=== PATIENT | female | born 1995 | race Caucasian/White ===

== ENCOUNTER 2020-03-25 21:46 | Emergency (ER) | payer OTHER, SELFPAY ==
[2020-03-25 21:49] VITALS: BP 139/93; PULSE 100; RESP 20; TEMP 36.7; O2SAT 100; BMI 34.7
[2020-03-25 23:08] LABS: Appearance Urine CLEAR; Color Urine YELLOW; Glucose Urine UA NEG (NEG); Leukocyte Esterase Urine NEG (NEG); Nitrite Urine NEG (NEG); Specific Gravity - Urine 1.015 (1.005-1.025); Urine Blood NEG (NEG); Urine Ketones NEG (NEG); Urine Protein NEG (NEG-TRACE)
[2020-03-25 23:09] LABS: UPreg QC Valid YES; Urine Pregnancy NEGATIVE (NEGATIVE)
[2020-03-26 00:23] VITALS: BP 114/75; PULSE 98; RESP 18; TEMP 36.6; O2SAT 99
--- NOTE | 2020-03-26 01:02 | ED.ABDPAIN ---
HPI - Abdominal Pain General Chief Complaint: Abdominal Pain Stated Complaint: Back and abdominal pain Time Seen by Provider: 03/25/20 22:42 Source: patient Mode of arrival: ambulatory History of Present Illness HPI narrative: This is a 24-year-old female who presents with 1 day acute worsening right lower quadrant pain that is sharp in nature, no radiation into the groin or upper thigh but associated with chills, nausea but no vomiting, and a few episodes of nonbloody diarrhea that started later in the day. She does have a positive prior history of a small kidney stone but denies any surgical history. Related Data Allergies Allergy/AdvReac Type Severity Reaction Status Date / Time amoxicillin [AMOXICILLIN] Allergy Unknown HIVES/TIGHT Verified 03/25/20 21:52 THROAT latex [LATEX] Allergy Unknown RASH Verified 03/25/20 21:52 Review of Systems Review of Systems Pertinent positives and negatives as stated in HPI 10 point review of systems is otherwise negative. Physical Exam Vital Signs: Vital Signs: Last Vital Signs Temp 97.9 F 03/26/20 00:23 Pulse 98 03/26/20 00:23 Resp 18 03/26/20 00:23 BP 114/75 03/26/20 00:23 Pulse Ox 99 03/26/20 00:23 Body Mass Index 34.7 VITAL SIGNS: Reviewed. GENERAL: Well developed, well nourished, mild distress. NOSE: Nares patent bilateral OROPHARYNX: no oral lesions noted, posterior pharynx clear and non-erythematous without noted tonsillar enlargement/erythema/exudates NECK: Supple, no adenopathy LUNGS: Normal breath sounds. No adventitious sounds or accessory muscle use. SpO2<99> CARDIOVASCULAR: Regular rate and rhythm without noted murmurs ABDOMEN: Soft, tenderness right lower quadrant without rebound but also noted to have CVA tenderness, non-distended with bowel sounds. SKIN: Inspection of the skin reveals no rashes NEUROLOGIC: Alert and oriented x 4. Course Course Course Narrative: This is a 24-year-old female with history and clinical presentation suggestive of possible appendicitis, renal colic, but less likely UTI or ovarian torsion. Will evaluate for possible ectopic as well. All investigations were reviewed and there were no acute findings to suggest appendicitis, renal colic, ruptured ovarian cyst, pyelonephritis, UTI. On re-evaluation patient's pain has improved and she was informed of all results and findings at the bedside and instructed to follow-up with her tank hoop bender for further evaluation right lower pelvic discomfort. MDM - Abdominal Pain Lab Data Result diagrams: 03/26/20 01:48 03/26/20 01:48 Labs: Lab Results 03/25/20 03/26/20 03/26/20 Range/Units 22:52 01:48 01:48 WBC 9.8 (4.8-10.8) X10*3/uL RBC 4.20 (4.20-5.50) X10*6/uL Hgb 13.6 (12.0-16.0) g/dl Hct 39.4 (37-47) % MCV 93.8 (80-98) fL MCH 32.4 (27.0-33.0) pg MCHC 34.5 (31.0-35.0) g/dl RDW 11.5 (11.0-16.0) % Plt Count 255 (160-400) X10*3/uL MPV 10.9 (9.4-12.3) fL Immature Gran % (Auto) 0.2 (0.0-0.4) % Neut % (Auto) 57.6 (45-73) % Lymph % (Auto) 34.7 (20-40) % [place] % (Auto) 6.3 (2-11) % Eos % (Auto) 0.8 (0-4) % Baso % (Auto) 0.4 (0-2) % Lymph # (Auto) 3.4 (1.2-4.9) X10*3/uL [place] # (Auto) 0.6 (0.1-1.2) X10*3/uL Eos # (Auto) 0.1 (0.0-0.4) X10*3/uL Baso # (Auto) 0.0 (0.0-0.2) X10*3/uL Abs Immat Gran (auto) 0.02 (0.00-0.03) X10*3/uL Absolute Neuts (auto) 5.6 (2.0-8.3) X10*3/uL Absolute Nucleated RBC 0.000 (0.0-0.012) X10*3/uL Nucleated RBC % (auto) 0.0 (0.0-0.2) /100WBC Sodium 139 (135-145) mmol/L Potassium 4.0 (3.3-5.1) mmol/l Chloride 106 (96-108) mmol/L Carbon Dioxide 22 (22-29) mmol/L Anion Gap 15 (12-20) BUN 9 (9-16) mg/dL Creatinine 0.64 (0.5-1.4) mg/dL Estim Creat Clear Calc 120.1 Estimated GFR > 60 Random Glucose 82 (60-115) mg/dL Calcium 9.0 (8.4-10.2) mg/dL Total Bilirubin 0.5 (0.0-1.0) mg/dL AST 29 (5-31) U/L ALT 34 H (0-31) U/L Alkaline Phosphatase 67 (39-117) U/L Total Protein 7.2 (6.5-8.0) g/dL Albumin 4.3 (3.5-5.0) g/dL Lipase 39 (8-78) U/L Urine Color YELLOW Urine Appearance CLEAR Urine pH 7.0 (5.0-8.0) Ur Specific [place] 1.015 (1.005-1.025) Urine Protein NEG (NEG-TRACE) MG/DL Urine Glucose (UA) NEG (NEG) MG/DL Urine Ketones NEG (NEG) MG/DL Urine Blood NEG (NEG) Urine Nitrite NEG (NEG) Ur Leukocyte Esterase NEG (NEG) Urine Test NEGATIVE (NEGATIVE) Discharge Plan Discharge Clinical Impression: Pelvic pain Patient Disposition: Home, Self-Care Instructions: Pelvic Pain in Women (ED) Additional Instructions: There is a possibility that you have a muscle strain, or possibly mittelschmerz versus endometriosis. With 2 latter possibilities should be further worked up and evaluated by your tank hoop bender. Recommend using [id number] Tylenol/ibuprofen for additional symptom relief. Please do not hesitate to return to the emergency department should you experience any worsening or new symptoms. Referrals: Tor Dowling, [employer] [Primary Care Provider] - 2 days (Re-evaluation of right pelvic pain, possibilities include muscle strain/endometriosis/mittelschmerz) [facility] Past Medical History Source: nursing notes reviewed Medical History PCOS (polycystic ovarian syndrome) Social History Social History Alcohol intake: former Smoking Status: Light tobacco smoker Use of substances other than those prescribed or required for medical reasons: No Advance Directives: No
--- NOTE | 2020-03-26 01:05 | CT_ITS ---
EXAMINATION: CT ABDOMEN AND PELVIS WITH CONTRAST CLINICAL INFORMATION: Right lower quadrant pain COMPARISON: None TECHNIQUE: Multidetector volumetric images were obtained from the superior aspect of the liver through the pubic symphysis following administration 85 mL of Omnipaque 350 intravenous contrast. Sagittal and coronal reformatted images were obtained on the technologist's workstation. Oral contrast: No This CT examination was performed using dose optimization techniques as appropriate, variously including the following: *Automated exposure control *Adjustment of mA and/or kV according to patient size (this includes techniques or standardized protocols for targeted exams where dose is matched to indication/reason for exam; i.e. extremities or head) *Use of iterative reconstruction technique DLP: 607 mGy-cm FINDINGS: LUNG BASES: The visualized lung bases are unremarkable. LIVER, GALLBLADDER, AND BILIARY TREE: The liver is normal in size, shape, and attenuation. No focal hepatic lesion or biliary ductal dilatation is present. The gallbladder is unremarkable with no evidence of radiopaque gallstones, gallbladder wall thickening, or obvious pericholecystic inflammatory changes. PANCREAS: Unremarkable. SPLEEN: Unremarkable. ADRENAL GLANDS: Unremarkable. KIDNEYS AND URETERS: The kidneys are normal in size, shape, and attenuation. There is mild fullness of the renal collecting systems, right greater than left, without naz hydronephrosis or hydroureter. This is favored to be physiologic. No nephrolithiasis or ureterolithiasis. BLADDER: Partially filled and otherwise unremarkable. GASTROINTESTINAL TRACT: Stomach, small bowel, and colon are normal in caliber. No bowel wall thickening or surrounding inflammatory changes. Appendix is normal. No intraperitoneal free fluid or free air. ABDOMINAL WALL: No significant hernia is appreciated. LYMPH NODES: Normal. VASCULAR: Unremarkable. PELVIC VISCERA: Uterus is retroverted. IUD is appropriately situated. There is a 2.5 cm cystic structure in the right ovary, most likely a follicular cyst. Left ovary is unremarkable. OSSEOUS STRUCTURES: No acute osseous findings. Lumbar spine appears relatively well-preserved. CT/CT abdomen pelvis w con IMPRESSION: No acute intra-abdominal or intrapelvic abnormalities. A 2.5 cm cystic structure in the right ovary likely corresponds to a follicular/corpus luteum cyst. No suspicious abnormalities.
[2020-03-26 01:54] LABS: MANUAL DIFF FLAG NO
[2020-03-26 02:08] LABS: Basophils Percent Auto 0.4 % (0-2); Eosinophils Absolute Auto 0.1 X10*3/uL (0.0-0.4); Eosinophils Percent Auto 0.8 % (0-4); Hematocrit 39.4 % (37-47); Hemoglobin 13.6 g/dl (12.0-16.0); Imm Gran Abs Auto 0.02 X10*3/uL (0.00-0.03); Imm Gran Pct Auto 0.2 % (0.0-0.4); Lymphocytes Absolute Auto 3.4 X10*3/uL (1.2-4.9); Lymphocytes Percent Auto 34.7 % (20-40); Mean Corpuscular HGB Conc 34.5 g/dl (31.0-35.0); Mean Corpuscular Hemoglobin 32.4 pg (27.0-33.0); Mean Corpuscular Volume 93.8 fL (80-98); Mean Platelet Volume 10.9 fL (9.4-12.3); Monocytes Absolute Auto 0.6 X10*3/uL (0.1-1.2); Monocytes Percent Auto 6.3 % (2-11); Neutrophils Absolute Auto 5.6 X10*3/uL (2.0-8.3); Neutrophils Percent Auto 57.6 % (45-73); Platelet Count 255 X10*3/uL (160-400); Red Cell Distribution Width 11.5 % (11.0-16.0); White Blood Count 9.8 X10*3/uL (4.8-10.8)
[2020-03-26 02:30] LABS: Alanine Aminotransferase 34 U/L (0-31); Albumin Level 4.3 g/dL (3.5-5.0); Alkaline Phosphatase 67 U/L (39-117); Anion Gap 15 (12-20); Aspartate Amino Transferase 29 U/L (5-31); Bilirubin Total 0.5 mg/dL (0.0-1.0); Blood Urea Nitrogen 9 mg/dL (9-16); Carbon Dioxide 22 mmol/L (22-29); Chloride 106 mmol/L (96-108); Creatinine Clr Calc Pharmacy 120.1; Estimated Glomerular Filt Rate > 60; Glucose Random 82 mg/dL (60-115); Lipase 39 U/L (8-78); Sodium 139 mmol/L (135-145); Total Protein 7.2 g/dL (6.5-8.0)
[2020-03-26] MEDS: 0.9 % Sodium Chloride 1,000 ML 999 ML IV (02:31)
[2020-03-26] MEDS: Acetaminophen 325 MG TABLET 975 MG PO (02:32)
[2020-03-26] MEDS: Ketorolac Tromethamine 15 MG/ML VIAL IVPUSH (02:33)
[2020-03-26] MEDS: iohexoL 350 MG/ML 100 ML INFUS..BTL 85 ML IV (03:18)
[2020-03-26 04:00] VITALS: BP 120/66; PULSE 88; RESP 18; TEMP 36.9; O2SAT 99
== END 2020-03-26 04:00 | disposition home or self-care (01) ==
PROVIDERS: Emergency Provider Student in an Organized Health Care Education/Training Program; PCP Nurse Practitioner Family
DX: R10.2 Pelvic and perineal pain (principal); R10.31 Right lower quadrant pain; M54.5 Low back pain; Z87.891 Personal history of nicotine dependence
CPT/HCPCS: 36415; 74177; 80053; 81003; 81025; 83690; 85025; 96361; 96374; 99284; J1885; Q9967

== ENCOUNTER 2022-02-21 20:49 | Emergency (ER) | payer OTHER, SELFPAY ==
[2022-02-21 21:15] VITALS: BP 113/87; PULSE 114; RESP 18; TEMP 36.7; O2SAT 96; BMI 34.3
--- NOTE | 2022-02-21 21:24 | ED.WOUNDLAC ---
HPI - Wound/Laceration General Chief Complaint: Wound/Laceration Stated Complaint: Lac to Head Time Seen by Provider: 02/21/22 21:21 Source: patient Mode of arrival: ambulatory Limitations: no limitations History of Present Illness HPI narrative: Patient comes to the emergency room complaining of a laceration to the forehead. Patient states that she dropped something on the floor, bent down to grab it and while she was doing so, she hit her forehead with the sharp edge of a counter top. Patient did not lose consciousness. Patient states that she has a headache and felt dizzy, patient denies loss of balance. Patient is not on blood thinners. Related Data Allergies Allergy/AdvReac Type Severity Reaction Status Date / Time amoxicillin [AMOXICILLIN] Allergy Unknown HIVES/TIGHT Verified 03/25/20 21:52 THROAT latex [LATEX] Allergy Unknown RASH Verified 03/25/20 21:52 Review of Systems Review of Systems: Constitutional : No Weight loss, No Fever, No Chills, No Night Sweats, No Fatigue, No Malaise ENT/Mouth : No Hearing loss, No Ear Pain, No Nasal Congestion, No Sinus Pain, No Hoarseness, No sore throat, No Rhinorrhea, No Swallowing Difficulty Eyes: No Eye Pain, No Swelling, No Redness, No Foreign Body, No Discharge, No Vision Changes Cardiovascular : No Chest Pain, No SOB, No Dyspnea on Exertion, No Orthopnea, No Edema, No Palpitations Respiratory : No Cough, No Sputum, No Wheezing, No Smoke Exposure, No Dyspnea Gastrointestinal : No Nausea, No Vomiting, No Diarrhea, No Constipation, No abdominal Pain, No Hematochezia, No Melena Genitourinary : no irregular bleeding, No Dysuria, No Urinary Frequency, No Hematuria, No Urinary Incontinence, No Urgency, No Flank Pain, No Urinary Flow Changes, No Hesitancy Musculoskeletal : No joint pain, No Myalgias, No Joint Swelling Skin : Complaining of a laceration to the forehead Neuro : No Weakness, No Numbness, No Paresthesias, No Loss of Consciousness, earlier today had dizziness, now has headache Psych : No Anxiety/Panic, No Depression, No SI/HI/AH/VH, No Social Issues, Heme/Lymph: No Bruising, No Bleeding,No Lymphadenopathy Endocrine : No Polyuria, No Polydipsia, No Temperature Intolerance [facility] Past Medical History Medical History PCOS (polycystic ovarian syndrome) Social History Social History Alcohol intake: former Advance Directives: No Advance Directives Information Provided: No Physical Exam Vital Signs: Vital Signs: Last Vital Signs Temp 98.1 F 02/21/22 21:15 Pulse 114 H 02/21/22 21:15 Resp 18 02/21/22 21:15 BP 113/87 02/21/22 21:15 Pulse Ox 96 02/21/22 21:15 O2 Del Method 02/21/22 21:15 BMI result Body Mass Index 34.3 Const: Other: Appearance: Alert. Oriented X3. No acute distress. Well-appearing Eyes: Pupils equal, round and reactive to light. ENT: Pharynx normal. Neck: Normal inspection. Neck supple. No lymph nodes noted. No crepitus CVS: Normal heart rate and rhythm. Pulses normal. Normal S1 and S2 Respiratory: No respiratory distress. Breath sounds normal. No Wheezing. No rales Abdomen: Soft and nontender. No rigidity. No distention. Skin: Skin warm and dry. 2 cm laceration, approximately 5 mm deep on the left side of the forehead Extremities: No lower extremity edema. No Lacerations. No Rash Neuro: Oriented X 3. No motor deficit. No sensory deficit. Moving all extremities. No slurred speech. CN 2 through 12 grossly intact, GCS of 15 Psych: calm, cooperative, normal affect Course Course Course Narrative: I discussed with the patient that she will need stitches, patient agrees with plan. [place] head CT head rule score of 0, no CT needed Medications Administered Discontinued Medications Generic Name Dose Route Start Last Admin Trade Name Freq PRN Reason Stop Dose Admin Acetaminophen 975 mg 02/21/22 21:24 02/21/22 21:42 Acetaminophen 325 Mg Tablet PO 02/21/22 21:25 975 mg ONCE ONE Administration Lidocaine HCl 6 ml 02/21/22 21:24 02/21/22 21:43 Lidocaine Hcl 2% 2 Ml Vial INFILTRATI 02/21/22 21:25 6 ml ONCE ONE Administration Medical Decision Making Medical Decision Making MDM Narrative: Patient id 5 sutures, tolerated well the procedure. Otherwise patient feeling well, well-appearing, no neurological deficits at this time. Differential Diagnosis Laceration, concussion, contusion Tests considered The following testing was considered but not selected: A CT scan of the head was considered. However, patient has localized pain, no longer dizzy, has no neurological deficits. There are no indications that patient may have a brain bleed. Patient is not on blood thinners. Prescription Management I considered prescription management with: Pain Medication Patient will be given Tylenol, patient has history of gastritis, ibuprofen will not be given. Procedures Laceration Laceration 1: Site: face Size (cm): 2 Description: linear Depth: simple, single layer Local Anesthetic: lidocaine 1% Amount of anesthesia used (mL): 2 Skin layer closed with: nylon Size (cm): 6-0 Number of sutures: 5 Technique: simple, interrupted Discharge Plan Discharge Clinical Impression: Laceration Patient Disposition: Home, Self-Care Instructions: Facial Laceration (ED) Additional Instructions: If you see any signs of infection such as redness, pus drainage, fever chills, please return to the emergency room. Otherwise, your stitches need to be removed in 7-10 days. This may be done at your primary care physician's office, urgent care or return to the emergency room. Please follow-up with your primary care physician tomorrow. If you have any worsening or new symptoms, please return to the emergency room or call 911
[2022-02-21] MEDS: Acetaminophen 325 MG TABLET 975 MG PO (21:42)
== END 2022-02-21 22:30 | disposition home or self-care (01) ==
PROVIDERS: Emergency Provider Emergency Medicine; PCP Nurse Practitioner Family
DX: S01.01XA Laceration without foreign body of scalp, initial encounter (principal); Y29.XXXA Contact with blunt object, undetermined intent, initial encounter; Y93.9 Activity, unspecified; Y92.000 Kitchen of unspecified non-institutional (private) residence as the place of occurrence of the external cause; Y99.9 Unspecified external cause status; Z79.899 Other long term (current) drug therapy
CPT/HCPCS: 12011; 99283; 99284

== ENCOUNTER 2022-03-16 01:28 | Emergency (ER) | payer OTHER, SELFPAY ==
[2022-03-16 01:30] VITALS: BP 136/84; PULSE 95; RESP 16; TEMP 36.4; O2SAT 97; BMI 34.3
--- NOTE | 2022-03-16 02:03 | PC.NURSE ---
pt a&ox4; complains of abd pain and vomiting and gets this from time to time, pt states she has had upper endoscopies, numerous testing done due to 'gi issues'; no apparent distress
[2022-03-16 02:17] LABS: Basophils Percent Auto 0.4 % (0-2); Eosinophils Percent Auto 0.1 % (0-4); Hemoglobin 14.8 g/dl (12.0-16.0); Imm Gran Abs Auto 0.02 X10*3/uL (0.00-0.03); Imm Gran Pct Auto 0.3 % (0.0-0.4); Lymphocytes Percent Auto 42.7 % (20-40); MANUAL DIFF FLAG NO; Mean Corpuscular HGB Conc 35.2 g/dl (31.0-35.0); Mean Corpuscular Hemoglobin 33.5 pg (27.0-33.0); Mean Platelet Volume 9.8 fL (9.4-12.3); Monocytes Absolute Auto 0.4 X10*3/uL (0.1-1.2); Monocytes Percent Auto 6.1 % (2-11); Neutrophils Absolute Auto 3.6 x10*3/uL (2.0-8.3); Neutrophils Percent Auto 50.4 % (45-73); Platelet Count 224 X10*3/uL (160-400); Red Blood Count 4.42 X10*6/uL (4.20-5.50); Red Cell Distribution Width 11.3 % (11.0-16.0); White Blood Count 7.1 X10*3/uL (4.8-10.8)
--- NOTE | 2022-03-16 02:26 | ED_ITS ---
HPI - Nausea/Vomiting/Diarrhea General Chief complaint: Nausea/Vomiting/Diarrhea Stated complaint: Vomiting Time Seen by Provider: 03/16/22 01:52 Source: patient Mode of arrival: ambulatory History of Present Illness HPI Narrative: 26-year-old female presents with complaints of multiple episodes of nausea and vomiting without fever chills, diarrhea and she does not think that she is as she has an IUD. Patient is not have any abdominal pain prior to the onset of the nausea and vomiting but after onset of multiple episodes is complaining of significant epigastric discomfort and now is reporting blood flecked vomitus that she quantitate as approximately 5 times today. Patient states she has had an upper endoscopy previously that showed ?lesions? but denies that she was ever prescribed a medication and states that her last endoscopy was over 2 years ago. Related Data Previous Rx's Medication Instructions Recorded omeprazole 40 mg capsule,delayed 40 mg PO DAILY #30 caps 03/16/22 release Allergies Allergy/AdvReac Type Severity Reaction Status Date / Time amoxicillin [AMOXICILLIN] Allergy Unknown HIVES/TIGHT Verified 03/25/20 21:52 THROAT latex [LATEX] Allergy Unknown RASH Verified 03/25/20 21:52 Review of Systems Review of Systems: Pertinent positives and negatives as stated in HPI PMFSH Past Medical History Source: nursing notes reviewed Medical History PCOS (polycystic ovarian syndrome) Social History Social History Alcohol intake: current Alcohol intake frequency: a few times a week Alcohol type: beer Smoked in Last 30 Days: Yes Use of substances other than those prescribed or required for medical reasons: No Advance Directives: No Advance Directives Information Provided: No Patient : No Physical Exam Vital Signs: Vital Signs: Last Vital Signs Temp 98.5 F 03/16/22 05:15 Pulse 77 03/16/22 05:15 Resp 18 03/16/22 05:15 BP 111/75 03/16/22 05:15 Pulse Ox 98 03/16/22 05:15 O2 Del Method 03/16/22 05:15 BMI result Body Mass Index 34.3 VITAL SIGNS: Reviewed. GENERAL: Elevated BMI Well developed, well nourished, in no acute distress. HEAD: Normocephalic/atraumatic EYES: PERRLA, EOMI EARS: Ext canals without abnormality OROPHARYNX: no oral lesions noted, posterior pharynx clear LUNGS: Normal breath sounds. No adventitious sounds or accessory muscle use. SpO2<97> CARDIOVASCULAR: Regular rate and rhythm without noted murmurs ABDOMEN: Soft, non-tender, non-distended with bowel sounds. MUSCULOSKELETAL: No tenderness, deformities, or effusions noted on gross inspection. EXTREMITIES: No cyanosis, clubbing or edema. SKIN: Inspection of the skin reveals no rashes NEUROLOGIC: Alert and oriented x 4. Strength and sensation to light touch were grossly intact x 4. Medications Administered Discontinued Medications Generic Name Dose Route Start Last Admin Trade Name Freq PRN Reason Stop Dose Admin Al Hydroxide/Mg Hydroxide 30 ml 03/16/22 04:10 03/16/22 04:43 Magnesium Hydrox/Alum Hydrox 30 Ml Oral.Susp PO 03/16/22 04:11 30 ml ONCE ONE Administration Famotidine 20 mg 03/16/22 02:22 03/16/22 02:42 Famotidine/Pf 20 Mg/2 Ml Vial IVPUSH 03/16/22 02:23 20 mg ONCE ONE Administration Sodium Chloride 1,000 mls @ 999 mls/hr 03/16/22 02:30 03/16/22 03:54 Ns IV 03/16/22 03:30 Infused .Q1H1M MARYAN Infusion Sodium Chloride 1,000 mls @ 999 mls/hr 03/16/22 03:30 03/16/22 04:57 Ns IV 03/16/22 04:30 Infused .Q1H1M MARYAN Infusion Lidocaine HCl 10 ml 03/16/22 04:10 03/16/22 04:43 Lidocaine Hcl Viscous 2 % 15 Ml Solution MUCOUS MEM 03/16/22 04:11 10 ml ONCE ONE Administration Ondansetron HCl 4 mg 03/16/22 02:22 03/16/22 02:42 Ondansetron Hcl 4 Mg/2 Ml Vial IVPUSH 03/16/22 02:23 4 mg ONCE ONE Administration Sucralfate 1 gm 03/16/22 04:10 03/16/22 04:43 Sucralfate Oral Suspension 1 Gm/10 Ml Oral.Susp PO 03/16/22 04:11 1 gm ONCE ONE Administration Medical Decision Making Medical Decision Making MDM Narrative: 26-year-old female with suspected gastritis/GERD/gastric ulcer. Patient received 2 L of IV fluids, anti acid as well as a GI cocktail and Carafate and an antiemetic. When I reviewed and interpreted patient's workup it appears that she has had an episode of gastritis/GERD as there is no evidence to suggest a pancreatitis, UTI, cholecystitis, or pneumonia. Patient is otherwise discharged home in stab le condition with a prescription for as reflux and instructed follow-up with primary care provider. Differential Diagnosis Differential Diagnoses: The differential diagnosis associated with the presentation includes Please see above Lab Data MDM Lab Attestation statement: I reviewed the patient's lab results. Please see the discussion above 03/16/22 02:02 03/16/22 02:02 Labs: Lab Results 03/16/22 03/16/22 03/16/22 Range/Units 02:02 02:02 05:15 WBC 7.1 (4.8-10.8) X10*3/uL RBC 4.42 (4.20-5.50) X10*6/uL Hgb 14.8 (12.0-16.0) g/dl Hct 42.0 (37.0-47.0) % MCV 95.0 (80.0-98.0) fL MCH 33.5 H (27.0-33.0) pg MCHC 35.2 H (31.0-35.0) g/dl RDW 11.3 (11.0-16.0) % Plt Count 224 (160-400) X10*3/uL MPV 9.8 (9.4-12.3) fL Immature Gran % (Auto) 0.3 (0.0-0.4) % Neut % (Auto) 50.4 (45-73) % Lymph % (Auto) 42.7 H (20-40) % [place] % (Auto) 6.1 (2-11) % Eos % (Auto) 0.1 (0-4) % Baso % (Auto) 0.4 (0-2) % Lymph # (Auto) 3.0 (1.2-4.9) X10*3/uL [place] # (Auto) 0.4 (0.1-1.2) X10*3/uL Eos # (Auto) 0.0 (0.0-0.4) X10*3/uL Baso # (Auto) 0.0 (0.0-0.2) X10*3/uL Abs Immat Gran (auto) 0.02 (0.00-0.03) X10*3/uL Absolute Neuts (auto) 3.6 (2.0-8.3) x10*3/uL Absolute Nucleated RBC 0.000 (0.0-0.012) X10*3/uL Nucleated RBC % (auto) 0.0 (0.0-0.2) /100WBC Sodium 140 (135-145) mmol/L Potassium 4.4 (3.3-5.1) mmol/L Chloride 106 (96-108) mmol/L Carbon Dioxide 24 (22-29) mmol/L Anion Gap 14 (12-20) BUN 8 L (9-16) mg/dL Creatinine 0.67 (0.5-1.4) mg/dL Estim Creat Clear Calc 111.9 Estimated GFR > 60 Random Glucose 91 (60-115) mg/dL Calcium 9.0 (8.4-10.2) mg/dL Total Bilirubin 0.3 (0.0-1.0) mg/dL AST 31 (5-31) U/L ALT 20 (0-31) U/L Alkaline Phosphatase 82 (39-117) U/L Total Protein 7.7 (6.5-8.0) g/dL Albumin 4.4 (3.5-5.0) g/dL Lipase 40 (8-78) U/L Urine Color Yellow Urine Appearance Clear Urine pH 7.0 (5.0-9.0) Ur Specific [place] 1.010 (1.005-1.025) Urine Protein Negative (Neg-Trace) mg/dL Urine Glucose (UA) Negative (Negative) mg/dL Urine Ketones Negative (Negative) mg/dL Urine Blood Negative (Negative) Urine Nitrite Negative (Negative) Ur Leukocyte Esterase Negative (Negative) Discharge Plan Discharge Clinical Impression: Gastritis, Gastroesophageal reflux disease Patient Disposition: Home, Self-Care Instructions: Gastritis (ED), Diet for Stomach Ulcers and Gastritis (ED), Gastroesophageal Reflux Disease (ED) Additional Instructions: 1. You are being provided with a medication that should help control the acid production and thereby lower your feelings of nausea. 2. I recommend that you also use [id number] Mylanta prior to each meal for additional symptom relief. 3. Please follow-up with your primary care provider on Friday morning. Return to the ER for worsening symptoms Prescriptions: New omeprazole 40 mg capsule,delayed release(DR/EC) 40 mg PO DAILY Qty: 30 0RF Referrals: Pairsa Sinha CNP [Primary Care Provider] -
[2022-03-16 02:32] LABS: Alanine Aminotransferase 20 U/L (0-31); Albumin Level 4.4 g/dL (3.5-5.0); Alkaline Phosphatase 82 U/L (39-117); Anion Gap 14 (12-20); Aspartate Amino Transferase 31 U/L (5-31); Bilirubin Total 0.3 mg/dL (0.0-1.0); Blood Urea Nitrogen 8 mg/dL (9-16); Carbon Dioxide 24 mmol/L (22-29); Chloride 106 mmol/L (96-108); Creatinine Clr Calc Pharmacy 111.9; Estimated Glomerular Filt Rate > 60; Glucose Random 91 mg/dL (60-115); Potassium 4.4 mmol/L (3.3-5.1); Sodium 140 mmol/L (135-145); Total Protein 7.7 g/dL (6.5-8.0)
[2022-03-16] MEDS: 0.9 % Sodium Chloride 1,000 ML 999 ML IV ×2 (02:39→03:52)
[2022-03-16 02:40] LABS: Lipase 40 U/L (8-78)
[2022-03-16] MEDS: ondansetron HCL 4 MG/2 ML VIAL IVPUSH (02:42)
[2022-03-16] MEDS: Famotidine/PF 20 MG/2 ML VIAL IVPUSH (02:42)
--- NOTE | 2022-03-16 04:00 | PC.NURSE ---
Pt sleeping; no apparent distress.
[2022-03-16] MEDS: Magnesium Hydrox/Alum Hydrox 30 ML ORAL.SUSP PO (04:43)
[2022-03-16] MEDS: Sucralfate Oral Suspension 1 GM/10 ML ORAL.SUSP PO (04:43)
[2022-03-16] MEDS: Lidocaine HCl Viscous 2 % 15 ML SOLUTION 10 ML MUCOUS MEM (04:43)
[2022-03-16 05:15] VITALS: BP 111/75; PULSE 77; RESP 18; TEMP 36.9; O2SAT 98
[2022-03-16 05:21] LABS: Appearance Urine Clear; Color Urine Yellow; Glucose Urine UA Negative (Negative); Leukocyte Esterase Urine Negative (Negative); Nitrite Urine Negative (Negative); Urine Blood Negative (Negative); Urine Ketones Negative (Negative); Urine Protein Negative (Neg-Trace)
--- NOTE | 2022-03-16 05:40 | PC.NURSE ---
Discharge instructions given and explained to patient, no apparent distress; IV cath tip intact upon removal; ambulates safely and independently; alert and oriented
== END 2022-03-16 05:39 | disposition home or self-care (01) ==
PROVIDERS: Emergency Provider Student in an Organized Health Care Education/Training Program; PCP Nurse Practitioner Family
DX: K29.70 Gastritis, unspecified, without bleeding (principal); K21.9 Gastro-esophageal reflux disease without esophagitis
CPT/HCPCS: 36415; 80053; 81003; 83690; 85025; 96361; 96374; 96375; 99284; J2405